=== PATIENT | male | born 1960 | race African-American/Black ===

== ENCOUNTER 2017-03-19 01:04 | Emergency (ER) | payer MEDICARE, MEDICAID ==
[~2017-03-19] VITALS: Ht 182.9 cm; Wt 101.0 kg
[~2017-03-19 01:04] MED LIST: ACCUPRIL20 MG PO; CIALIS10 MG PO; CIALIS5 MG PO; COREG CR20 MG OR; COREG12.5 MG PO; DIABETA5 MG PO; DIGOX0.25 MG PO; LANCET MICRO XX; LASIX40 MG PO; LORTAB 5 OR; LOTENSIN20 MG OR; MULTI-VIT/FE PO; PENICILLN VK500 M1 OR; PENICILLN VK500 MG OR; POT CHLORIDE10 ME5 PO; SIMVASTATIN40 MG PO; TRUETEST STRIPS VI; VIAGRA100 MG PO; ZOCOR20 MG OR; [UNRECOGNIZED DRUG - OTHER] XX
[2017-03-19 02:02] LABS: HEMATOCRIT 36.6 % (39.0-50.0); HEMOGLOBIN 12.5 g/dl (14.0-18.0); IMMATURE GRANULOCYTES 0.2 % (0.0-1.0); MEAN CELL VOLUME 86.5 fL CALC (80.0-100.0); MEAN CORPUSCULAR HGB 29.6 pG CALC (26.0-32.0); MEAN CORPUSCULAR HGB CONC 34.2 g/L CALC (32.0-36.0); NEUT# 6.04 thou/uL (1.82-7.42); RED BLOOD COUNT 4.23 mill/uL (4.70-6.10); RED CELL DISTRI WIDTH 12.4 % (11.5-15.5)
[2017-03-19 02:21] LABS: ALBUMIN 3.9 g/dL (3.2-5.0); ALKALINE PHOSPHATASE 114 u/l (38-126); ANION GAP 14 (6-22 (CALC)); BILIRUBIN, TOTAL 0.4 mg/dL (0.0-1.4); BUN 11 mg/dL (9-20); BUN/CREATININE RATIO 10 (12-20 (CALC)); CALCIUM 9.6 mg/dL (8.4-10.2); CARBON DIOXIDE 29 mmol/l (22-30); CHLORIDE 101 mmol/l (95-108); CREATININE 1.1 mg/dL (0.7-1.3); GFR > 60 ML/MIN (>=60 (CALC)); GFR FOR AFR.AMER. > 60 ML/MIN (>=60 (CALC)); GLUCOSE 216 mg/dL (75-110); SGOT/AST 21 u/l (17-59); SGPT/ALT 25 u/l (21-72); SODIUM 140 mmol/l (137-146); TOTAL PROTEIN 7.9 g/dL (6.3-8.2)
[2017-03-19 02:34] LABS: MYOGLOBIN 47 ng/mL (0 - 121)
[2017-03-19 02:58] VITALS: BP 177/73
== END 2017-03-19 03:07 | disposition home or self-care (01) ==
LOC: ED 01:04
PROVIDERS: Emergency Medicine
DX: R00.2 Palpitations (principal); I49.3 Ventricular premature depolarization; I10 Essential (primary) hypertension

== ENCOUNTER 2023-01-29 06:25 | Emergency (ER) | payer MEDICARE, MEDICAID ==
[~2023-01-29] VITALS: Ht 182.9 cm; Wt 93.0 kg
[2023-01-29 06:36] VITALS: BP 172/88
[2023-01-29 06:45] VITALS: BP 169/90
[2023-01-29 07:00] VITALS: BP 159/82
[2023-01-29 07:15] VITALS: BP 158/82
[2023-01-29 07:30] VITALS: BP 160/74
[2023-01-29] MEDS ORDERED: CYCLOBENZAPRINE10 MG PO (07:37)
[2023-01-29] MEDS ORDERED: IBUPROFEN600 MG PO (07:37)
[2023-01-29 07:45] VITALS: BP 157/78
== END 2023-01-29 08:00 | disposition home or self-care (01) ==
LOC: ED 06:25
DX: M54.32 Sciatica, left side (principal); I25.2 Old myocardial infarction; I50.9 Heart failure, unspecified

== ENCOUNTER 2024-11-22 09:38 | Emergency (ER) | payer MEDICARE, MEDICAID ==
[~2024-11-22] VITALS: Ht 182.9 cm; Wt 81.6 kg
[2024-11-22] VITALS (18 sets, daily range): BP systolic 102–153; BP diastolic 64–82
[~2024-11-22 09:38] MED LIST changes: +CYCLOBENZAPRINE10 MG PO; +IBUPROFEN600 MG PO; +MEDDOSEPAK PO; +METHOCARBAMOL500 MG PO; +NAPROXEN500 MG PO
[2024-11-22 10:29] LABS: BASO% 0.2 % (0-3); EOS% 0.2 % (0-8); HEMATOCRIT 35.8 % (39.0-50.0); HEMOGLOBIN 12.1 g/dl (14.0-18.0); IMMATURE GRANULOCYTES 0.3 % (0.0-5.0); LYMPH% 3.1 % (15-41); MEAN CELL VOLUME 88.2 fL CALC (80.0-100.0); MEAN CORPUSCULAR HGB 29.8 pG CALC (26.0-32.0); MEAN CORPUSCULAR HGB CONC 33.8 g/dL CAL (32.0-36.0); MONO% 7.1 % (2-13); NEUT# 16.78 thou/uL (1.82-7.42); NEUT% 89.1 % (42-76); RED BLOOD COUNT 4.06 mill/uL (4.70-6.10)
[2024-11-22] MEDS ORDERED: ONDANSETRON 4 MG/TAB ODT SL ONE (10:35)
[2024-11-22 10:42] LABS: ALBUMIN 3.4 g/dL (3.2-5.0); BILIRUBIN, TOTAL 0.9 mg/dL (0.2-1.3); CREATININE 1.6 mg/dL (0.7-1.3); POTASSIUM 3.8 mmol/l (3.5-5.1); TOTAL PROTEIN 6.9 g/dL (6.3-8.2)
[2024-11-22] MEDS ORDERED: SODIUM CHLORIDE 0.9% 1,000 ML IV STA (11:43)
[2024-11-22] MEDS ORDERED: PIPERACILLIN Sodium-Tazobactam 3.375 GM in SODIUM CHLORIDE 0.9% 100 ML IV STA (11:43)
[2024-11-22 13:50] LABS: URINE BILIRUBIN - DIPSTICK Negative (NEGATIVE); URINE BLOOD DIPSTICK Moderate (NEGATIVE); URINE GLUCOSE - DIPSTICK Negative (NEGATIVE); URINE KETONE Negative (NEGATIVE); URINE PROTEIN - DIPSTICK 100 mg/dL (NEG-TRACE); URINE UROBILINOGEN - DIPSTICK 0.2 E.U./dL (0.2)
[2024-11-22 13:51] LABS: URINE COLOR Yellow; URINE LEUK ESTERASE Large (NEGATIVE); URINE NITRITE - DIPSTICK Positive (Negative)
[2024-11-22 13:58] LABS: URINE BACTERIA MANY hpf; URINE WBC TNTC WBC/hpf (0-5)
[2024-11-22] MEDS ORDERED: SODIUM CHLORIDE 0.9% 1,000 ML IV SCH (15:00)
[2024-11-22] MEDS ORDERED: MAGNESIUM HYDROXIDE 30 ML UDC PO PRN (15:10)
[2024-11-22] MEDS ORDERED: ACETAMINOPHEN 325 MG/TAB PO PRN (15:10)
[2024-11-22] MEDS ORDERED: SODIUM CHLORIDE 0.9% 1,000 ML IV PRN (15:10)
[2024-11-22] MEDS ORDERED: ONDANSETRON HCl 4 MG/2 ML SDV IV PRN (15:15)
[2024-11-22] MEDS ORDERED: Pantoprazole Sodium 40 MG VIAL (Protonix) IV SCH (16:00)
[2024-11-22] MEDS ORDERED: INSULIN LISPRO 100 UNITS/ML ML SC SCH (17:00)
[2024-11-22] MEDS ORDERED: CARVEDILOL 6.25 MG/TAB PO SCH (21:00)
[2024-11-22] MEDS ORDERED: Heparin SODIUM (Porcine) 5,000 UNITS/ML SDV SC SCH (22:00)
== END 2024-11-22 15:20 | disposition left against medical advice (07) ==
LOC: ED 09:38 → ED-I 14:20 → ED 15:20
PROVIDERS: Family Medicine
DX: A41.9 Sepsis, unspecified organism (principal); N10 Acute pyelonephritis; B96.20 Unspecified Escherichia coli [E. coli] as the cause of diseases classified elsewhere; R91.8 Other nonspecific abnormal finding of lung field; I11.0 Hypertensive heart disease with heart failure; I50.9 Heart failure, unspecified; E11.9 Type 2 diabetes mellitus without complications; E78.5 Hyperlipidemia, unspecified; I25.2 Old myocardial infarction; Z79.84 Long term (current) use of oral hypoglycemic drugs; Z53.29 Procedure and treatment not carried out because of patient's decision for other reasons
CPT/HCPCS: J0696; J2543; Q9967

== ENCOUNTER 2024-12-14 18:25 | Emergency (ER) | payer MEDICARE, MEDICAID ==
[~2024-12-14] VITALS: Ht 182.9 cm; Wt 81.6 kg
[2024-12-14] VITALS (18 sets, daily range): BP systolic 70–103; BP diastolic 34–63
[2024-12-14] MEDS ORDERED: SODIUM CHLORIDE 0.9% 1,000 ML IV ONE ×4 (18:35→23:00)
[2024-12-14] MEDS ORDERED: DOXYCYCLINE HYCLATE 100 MG in SODIUM CHLORIDE 0.9% 100 ML IV ONE (19:15)
[2024-12-14 19:28] LABS: BASO% 0.3 % (0-3); EOS% 2.2 % (0-8); HEMATOCRIT 34.1 % (39.0-50.0); HEMOGLOBIN 10.5 g/dl (14.0-18.0); MEAN CELL VOLUME 93.4 fL CALC (80.0-100.0); MEAN CORPUSCULAR HGB 28.8 pG CALC (26.0-32.0); MEAN CORPUSCULAR HGB CONC 30.8 g/dL CAL (32.0-36.0); MONO% 1.7 % (2-13); NEUT# 8.83 thou/uL (1.82-7.42); NEUT% 82.8 % (42-76); RED BLOOD COUNT 3.65 mill/uL (4.70-6.10); RED CELL DISTRI WIDTH 13.1 % (11.5-15.5)
[2024-12-14 19:43] LABS: ANION GAP 15 (6-22 (CALC)); BILIRUBIN, TOTAL 0.7 mg/dL (0.2-1.3); BUN 54 mg/dL (8-23); CARBON DIOXIDE 17 mmol/l (22-30); CHLORIDE 109 mmol/l (95-108); POTASSIUM 4.1 mmol/l (3.5-5.1); SGOT/AST 24 u/l (19-48); SODIUM 137 mmol/l (137-146); TOTAL PROTEIN 6.3 g/dL (6.3-8.2)
[2024-12-14 19:51] LABS: ALBUMIN 2.7 g/dL (3.2-5.0); ALKALINE PHOSPHATASE 182 u/l (38-126); BUN/CREATININE RATIO 7 (12-20 (CALC)); CREATININE 7.3 mg/dL (0.7-1.3); ESTIMATED GFR 8 ML/MIN (>=90 (CALC)); ETHYL ALCOHOL < 10 mg/dl (0-30)
[2024-12-14] MEDS ORDERED: NOREPINEPHRINE BITARTRATE 4 MG in DEXTROSE 5% 250 ML IV ONE (20:40)
[2024-12-14] MEDS ORDERED: SODIUM CHLORIDE 0.9% 250 ML IV PRN (20:40)
[2024-12-14 23:49] LABS: URINE BILIRUBIN - DIPSTICK Negative (NEGATIVE); URINE BLOOD DIPSTICK Small (NEGATIVE); URINE GLUCOSE - DIPSTICK Negative (NEGATIVE); URINE KETONE Negative (NEGATIVE); URINE NITRITE - DIPSTICK Negative (Negative); URINE PH 5.5 (4.5-8.0); URINE PROTEIN - DIPSTICK 100 mg/dL (NEG-TRACE)
[2024-12-14 23:50] LABS: URINE COLOR Yellow; URINE LEUK ESTERASE Large (NEGATIVE)
[2024-12-14 23:51] LABS: URINE BACTERIA FEW hpf; URINE WBC >100 WBC/hpf (0-5)
== END 2024-12-14 23:15 ==
LOC: ED 18:25
PROVIDERS: Family Medicine
DX: R55 Syncope and collapse (principal); J18.9 Pneumonia, unspecified organism; N19 Unspecified kidney failure; I50.9 Heart failure, unspecified; I25.2 Old myocardial infarction; Z20.822 Contact with and (suspected) exposure to COVID-19
CPT/HCPCS: J0696